=== PATIENT | female | born 1950 | race Hispanic/Latino ===

== ENCOUNTER → 2020-12-07 | Outpatient (CLI) | payer MEDICARE ==
[~2020-12-07] MED LIST: FUROSEMIDE20 MG PO; LOSARTAN-HCTZ1 EAC1 PO; MELOXICAM7.5 MG PO; METFORMIN HCL850 MG PO; NEXIUM40 MG PO; REGLAN5 MG PO; ULTRAM 50MG50 MG PO
== END ==
LOC: RAD 09:47
PROVIDERS: ATTEND Student in an Organized Health Care Education/Training Program
DX: E11.9 Type 2 diabetes mellitus without complications (principal); I50.9 Heart failure, unspecified; I10 Essential (primary) hypertension
CPT/HCPCS: 93306